=== PATIENT | male | born 1960 | race Caucasian/White ===

== ENCOUNTER 2023-11-29 10:32 | Emergency (ER) | payer SELFPAY | END 2023-11-29 11:50 | disposition home or self-care (01) | LOC: MADERS 10:32 | DX: S76.902A Unspecified injury of unspecified muscles, fascia and tendons at thigh level, left thigh, initial encounter (principal); F17.220 Nicotine dependence, chewing tobacco, uncomplicated; X50.0XXA Overexertion from strenuous movement or load, initial encounter | CPT/HCPCS: 99283 ==